=== PATIENT | female | born 1975 | race African-American/Black ===

== ENCOUNTER 2022-03-02 14:07 | Emergency (ER) | payer OTHER ==
[~2022-03-02] VITALS: Ht 167.6 cm; Wt 64.0 kg
[2022-03-02] MEDS ORDERED: ONDANSETRON HCL 4MG TABLET PO ONE (15:15)
[2022-03-02 15:28] LABS: BASOPHILS % 1.1 % (0.0-2.0); EOSINOPHILS % 1.7 % (0.0-5.0); HEMATOCRIT. 43.6 % (36.0-48.0); HEMOGLOBIN. 14.6 g/dL (12.0-16.0); LYMPHOCYTES % 34.9 % (20.0-50.0); MEAN PLATELET VOLUME 7.5 fl (7.4-10.4); MONOCYTES % 7.9 % (2.0-8.0); NEUTROPHILS % 54.4 % (40.0-76.0); PLATELET 372 x1000/uL (130-400); RED BLOOD CELL COUNT 5.38 mill/uL (4.2-5.4); RED CELL DISTRIBUTION WIDTH 13.1 % (11.6-14.6)
[2022-03-02 15:43] LABS: CHLORIDE 91 mEq/L (98-107)
[2022-03-02 15:50] LABS: HCG SCREEN NEGATIVE
[2022-03-02 15:52] LABS: CLARITY URINE CLEAR (CLEAR); COLOR URINE YELLOW (YELLOW); KETONES URINE 1+ (NEGATIVE); LEUKOCYTE ESTERASE URINE TRACE (NEGATIVE); NITRITE URINE NEGATIVE (NEGATIVE); OCCULT BLOOD URINE NEGATIVE (NEGATIVE); PH URINE 6.5 (4.5-8.0); PROTEIN URINE NEGATIVE (NEGATIVE); SPECIFIC GRAVITY URINE 1.012 (1.005-1.030)
[2022-03-02 16:06] LABS: UCG SCREEN NEGATIVE
[2022-03-02] MEDS ORDERED: KETOROLAC 15MG/ML VIAL IV ONE (16:45)
[2022-03-02] MEDS ORDERED: MORPHINE SULFATE 4 MG/ML CPJ (NOT FOR IM USE) IV ONE (17:30)
[2022-03-02 17:32] VITALS: BP 124/67
== END 2022-03-02 19:05 | disposition home or self-care (01) ==
LOC: ER 14:30
DX: K85.90 Acute pancreatitis without necrosis or infection, unspecified (principal); E11.9 Type 2 diabetes mellitus without complications
CPT/HCPCS: 36415; 80053; 81003; 81025; 83605; 83690; 84484; 84703; 85025; 93005; 96374; 96375; 99284; J1885; J2270; Q0162